=== PATIENT | male | born 1965 | race Caucasian/White ===

== ENCOUNTER 2023-08-14 11:06 | Emergency (ER) | payer OTHER, SELFPAY ==
[2023-08-14 11:15] VITALS: BP 154/89
--- NOTE | 2023-08-14 12:27 | ED.GENMED ---
History of Present Illness
General
Chief Complaint: Esophageal Problem
Time Seen by Provider: 08/14/23 11:22
Travel History
Have you had any contact with someone who has COVID-19?: No
Do you have any symptoms of coronavirus? Fever > 100 degrees, chills, cough, shortness of breath, sore throat, loss of taste or smell, muscle aches, or headache?: No
History of Present Illness
History of Present Illness:
57-year-old male presents to the emergency department for ration of painful swallowing and sensation of temporary food obstructions ongoing for the past several days. He has no symptoms when he is not eating or drinking. Does note occasional
discomfort when swallowing even saliva. Has not had any unresolved obstructions to his knowledge. Denies any GERD type symptoms or back discomfort. No abdominal surgeries. Notes that he has been on full dose aspirin for the past month after a
hip replacement
Past History
Past History
ED Past Medical History: None
ED Past Surgical History: Orthopedic
Social History
Tobacco: Non-smoker
Review of Systems
Review of Systems
Allergies reviewed?: Yes
All Other Systems: ROS reviewed and negative except as documented in HPI and ROS
Phy Exam
Physical Exam
Physical Exam:
GEN: Well appearing, NAD, WDWN
HEENT: Oral mucosa moist, no scleral icterus
Cardiac: Regular rate
Lung: No respiratory distress, no tachypnea
MSK: No gross deformity or injuries
Skin: Good color, no pallor or jaundice, no rashes
Neuro: AO x3, moves all extremities freely
Psych: Calm, cooperative
Course
Orders/Labs/Results
Orders:
Orders
08/14/23 11:18
ECG [Electrocardiogram (*1)] Urgent
Reason for Study: Other
Other Reason for Exam: swallowing issue
CR Chest - 2 Views Urgent
Comment:
Reason For Exam: swallowing issue
CR Soft Tissue Neck Urgent
Comment:
Reason For Exam: swallowing issue
08/14/23 11:19
EKG- Treatment ONCE
Vital Signs
Initial and Last Documented VS:
Initial Vital Signs
Temp Pulse Resp BP Pulse Ox
98.6 F 64 20 154/89 98
08/14/23 11:15 08/14/23 11:15 08/14/23 11:15 08/14/23 11:15 08/14/23 11:15
Last Documented Vital Signs
Temp Pulse Resp BP Pulse Ox
98.6 F 64 20 154/89 98
08/14/23 11:15 08/14/23 11:15 08/14/23 11:15 08/14/23 11:15 08/14/23 11:15
MDM/Problems Addressed
MDM/Problems Addressed:
Patient's symptoms are most compatible with GERD versus esophageal stricture/dysmotility. He has no signs of complete esophageal obstruction. Will start on high-dose PPIs and Carafate, referred to GI as an outpatient for further management
*Critical Care Note
Total Time (30-74mins, 75-104mins- exclusive of procedures): Not Applicable
ED Attending Note
-
Portions of this chart may have been created with voice recognition software.� Occasional wrong word or��sound alike� substitutions may have occurred due to the inherent limitations of voice recognition software.
Discharge Plan
Departure
Patient Disposition: Home (Routine Discharge)
Date of Disposition: 08/14/23
Time of Disposition: 12:27
Patient with high blood pressure during this ER visit?: No
Discharge Problem:
Esophageal abnormality
Instructions: Acid Reflux and GERD in Adults (DC), Esophageal Stricture (DC)
Prescriptions:
New
pantoprazole 40 mg tablet,delayed release (DR/EC)
40 mg PO BID 14 Days Qty: 28 0RF
sucralfate [Carafate] 100 mg/mL suspension
10 ml PO AC Qty: 400 0RF
No Action
meloxicam 15 MG tablet
15 mg PO DAILY
glucos sul [id number] [Glucosamine Chondroitin] 1 EACH capsule
1 ea PO Q48H
Dietary Supplement
1 tab PO DAILY
Multivitamin
1 tab PO DAILY
Referrals:
Matilda Reyes PA-C [Family Provider] -
Liane Zapata DO [Active] - Call in 1-3 days for appt
Interventions
Interventions:
*Risk Screen - Suicide Last Done: 08/14/23 11:15
*General Assessment Last Done: 08/14/23 11:15
*Neglect/Abuse Screening Last Done: 08/14/23 11:15
*ED COVID-19 Vaccine History Last Done: 08/14/23 11:35
*Nursing Disposition Last Done: 08/14/23 12:36
[facility] Assessment Last Done: 08/14/23 11:37
ED-EENT Assessment Last Done: 08/14/23 11:37
Discharge Date and Time
Discharge Date/Time: 08/14/23 12:36
== END 2023-08-14 12:36 | disposition home or self-care (01) ==
LOC: EMR 11:06
PROVIDERS: EMERGENCY PHYSICIAN Emergency Medicine; FAMILY PHYSICIAN Student in an Organized Health Care Education/Training Program
DX: K22.89 Other specified disease of esophagus (principal)
CPT/HCPCS: 99284; 70360; 71046; 93005

== ENCOUNTER → 2023-09-11 09:46 | Outpatient (REF) | payer OTHER, SELFPAY | LOC: RAD 09:46 | PROVIDERS: ATTENDING PHYSICIAN Student in an Organized Health Care Education/Training Program; REFERRING PHYSICIAN Internal Medicine | DX: R13.19 Other dysphagia (principal) | CPT/HCPCS: 74221 ==

== ENCOUNTER → 2023-10-08 06:39 | Day surgery (SDC) | payer OTHER, SELFPAY | LOC: GI 06:39 | PROVIDERS: ATTENDING PHYSICIAN Internal Medicine | DX: K44.9 Diaphragmatic hernia without obstruction or gangrene (principal); K22.89 Other specified disease of esophagus; K31.89 Other diseases of stomach and duodenum; R13.10 Dysphagia, unspecified; K20.80 Other esophagitis without bleeding | CPT/HCPCS: 43239; 88305; 88342 ==

== ENCOUNTER → 2024-09-30 11:41 | Outpatient (REF) | payer OTHER, SELFPAY | LOC: RAD 11:41 | PROVIDERS: ATTENDING PHYSICIAN Student in an Organized Health Care Education/Training Program | DX: M25.562 Pain in left knee (principal) | CPT/HCPCS: 73564 ==

== ENCOUNTER → 2024-10-07 12:56 | Outpatient (REF) | payer OTHER, SELFPAY | LOC: MRI 3T 12:56 | PROVIDERS: ATTENDING PHYSICIAN Student in an Organized Health Care Education/Training Program | DX: M25.562 Pain in left knee (principal); M71.22 Synovial cyst of popliteal space [Baker], left knee | CPT/HCPCS: 73721 ==

== ENCOUNTER → 2025-03-09 14:24 | Outpatient (REF) | payer OTHER, SELFPAY | LOC: RCS 14:24 | PROVIDERS: ATTENDING PHYSICIAN Orthopaedic Surgery; FAMILY PHYSICIAN Student in an Organized Health Care Education/Training Program | DX: Z01.818 Encounter for other preprocedural examination (principal) | CPT/HCPCS: 93005 ==